=== PATIENT | female | born 1965 | race Hispanic/Latino ===

== ENCOUNTER 2018-07-17 12:46 | Emergency (ER) | payer OTHER ==
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
[2018-07-17] MEDS ORDERED: IBUPROFEN PO ONE (15:29)
[2018-07-17] MEDS ORDERED: IBUPROFEN ONE (15:32)
[2018-07-17 15:36] VITALS: BP 102/72
== END 2018-07-17 15:36 | disposition home or self-care (01) ==
LOC: ED 12:46
DX: S16.1XXA Strain of muscle, fascia and tendon at neck level, initial encounter (principal); M54.5 Low back pain; E11.9 Type 2 diabetes mellitus without complications; F32.9 Major depressive disorder, single episode, unspecified; Z88.0 Allergy status to penicillin; V49.49XA Driver injured in collision with other motor vehicles in traffic accident, initial encounter; Y93.89 Activity, other specified; Y92.488 Other paved roadways as the place of occurrence of the external cause; Y99.8 Other external cause status
CPT/HCPCS: 72040; 72100

== ENCOUNTER 2019-01-25 19:55 | Emergency (ER) | payer SELFPAY ==
[2019-01-25 20:21] VITALS: BP 94/44
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
[2019-01-25] MEDS ORDERED: IBUPROFEN PO ONE (21:13)
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
== END 2019-01-25 22:07 | disposition home or self-care (01) ==
LOC: ED 19:55
DX: M54.5 Low back pain (principal); M54.2 Cervicalgia; E11.9 Type 2 diabetes mellitus without complications; F32.9 Major depressive disorder, single episode, unspecified; E78.00 Pure hypercholesterolemia, unspecified; Z90.49 Acquired absence of other specified parts of digestive tract; F17.200 Nicotine dependence, unspecified, uncomplicated; Z79.899 Other long term (current) drug therapy; Z88.0 Allergy status to penicillin; V49.59XA Passenger injured in collision with other motor vehicles in traffic accident, initial encounter; Y93.89 Activity, other specified; Y92.410 Unspecified street and highway as the place of occurrence of the external cause; Y99.8 Other external cause status
CPT/HCPCS: 72040; 72100